=== PATIENT | female | born 2000 ===

== ENCOUNTER 2018-06-27 15:11 | Outpatient (CLI) | payer OTHER ==
--- NOTE | 2018-06-27 17:14 | MRI ---
RIGHT ANKLE MRI WITHOUT IV CONTRAST: History: Sprain of right ankle. Right heel pain since an injury June 06. FINDINGS: There is some abnormal marrow signal involving the medial aspect of the talus as well as the medial m alleolus, evidence for contusion versus stress related changes. Increased signal noted in the deep fi bers of the deltoid ligament, particularly posteriorly, evidence for deltoid ligament splaying. There is a tear of the anterior talofibular ligament. The calcaneal fibular ligament is somewhat indistinc t. Syndesmotic ligament appears unremarkable as does the posterior talofibular ligament. Flexor, exte nsor, and peroneus tendons appear intact. Achilles tendon and plantar fascia are unremarkable. Sinus tarsi and spring ligament regions are unremarkable. There is evidence for some joint effusion involvi ng the tibiotalar joint. IMPRESSION: Disruption of the anterior talofibular ligament with possible mild splaying of the calcaneal fibular ligament. Increased signal in the deep fibers, particularly the posterior deltoid ligament, evidence for splaying. Abnormal marrow signal involving the medial malleolus and medial talus, possibly relate d to contusion or stress related changes resulting from the ligamentous injury. Abnormal talofibular joint fluid. No evidence for other significant acute internal derangement. POS: [facility]
== END 2018-06-27 15:12 | disposition home or self-care (01) ==
LOC: BICMRI 15:11
PROVIDERS: ATTEND Orthopaedic Surgery
DX: S93.491A Sprain of other ligament of right ankle, initial encounter (principal); R93.7 Abnormal findings on diagnostic imaging of other parts of musculoskeletal system